=== PATIENT | female | born 1975 | race African-American/Black ===

== ENCOUNTER 2016-12-02 13:53 | Emergency (ER) | payer MEDICAID ==
[~2016-12-02] VITALS: Ht 160 cm; Wt 55.0 kg
[2016-12-02 14:12] VITALS: BP 155/100
== END 2016-12-02 21:08 | disposition left against medical advice (07) ==
LOC: ER 21:03
DX: R10.10 Upper abdominal pain, unspecified (principal); R11.10 Vomiting, unspecified; Z53.21 Procedure and treatment not carried out due to patient leaving prior to being seen by health care provider

== ENCOUNTER 2017-01-04 03:09 | Emergency (ER) | payer MEDICAID ==
[~2017-01-04] VITALS: Ht 157.5 cm; Wt 59.0 kg
[2017-01-04] MEDS ORDERED: ONDANSETRON HCL 4MG/2ML VIAL IV STA (03:29)
[2017-01-04] MEDS ORDERED: MORPHINE SULFATE 4 MG/ML CPJ (NOT FOR IM USE) IV STA (03:29)
[2017-01-04] MEDS ORDERED: SODIUM CHLORIDE 0.9% 1,000 ML IV ONE (03:29)
[2017-01-04 03:52] LABS: BASOPHILS % 3.4 % (0.0-2.0); EOSINOPHILS % 3.4 % (0.0-5.0); HEMATOCRIT. 31.2 % (36.0-48.0); HEMOGLOBIN. 10.7 g/dL (12.0-16.0); MEAN CORPUSCULAR VOLUME 107.5 fL (81.0-99.0); MEAN PLATELET VOLUME 6.2 fl (7.4-10.4); MONOCYTES % 5.2 % (2.0-8.0); PLATELET 339 x1000/uL (130-400); RED CELL DISTRIBUTION WIDTH 17.3 % (11.6-14.6)
[2017-01-04 03:54] LABS: INR 1.1; PROTHROMBIN TIME 11.2 sec (9.4-11.6)
[2017-01-04 04:01] LABS: CARBON DIOXIDE 28 mEq/L (21-32); CHLORIDE 112 mEq/L (98-107)
[2017-01-04 04:46] LABS: CLARITY URINE CLOUDY (CLEAR); COLOR URINE DARK YELLOW (YELLOW); GLUCOSE URINE NEGATIVE (NEGATIVE); KETONES URINE TRACE (NEGATIVE); LEUKOCYTE ESTERASE URINE NEGATIVE (NEGATIVE); NITRITE URINE NEGATIVE (NEGATIVE); OCCULT BLOOD URINE 2+ (NEGATIVE); PH URINE 5.5 (4.5-8.0); PROTEIN URINE TRACE (NEGATIVE); SPECIFIC GRAVITY URINE 1.028 (1.005-1.030)
[2017-01-04 04:58] VITALS: BP 130/85
== END 2017-01-04 05:34 | disposition home or self-care (01) ==
LOC: ER 03:09
DX: A08.4 Viral intestinal infection, unspecified (principal); F17.200 Nicotine dependence, unspecified, uncomplicated; F12.10 Cannabis abuse, uncomplicated; I10 Essential (primary) hypertension
CPT/HCPCS: 36415; 80053; 81001; 81025; 83690; 85025; 85610; 96361; 96374; 96375; 99284; J2270; J2405; J7030; Z7610

== ENCOUNTER 2017-01-16 20:38 | Emergency (ER) | payer MEDICAID ==
[~2017-01-16] VITALS: Ht 162.6 cm; Wt 70.0 kg
[2017-01-17] MEDS ORDERED: KETOROLAC 30MG/ML VIAL IV STA (02:22)
[2017-01-17] MEDS ORDERED: MAGNESIUM/ALUMINUM HYDROXIDE/SIMETHICONE 30ML UDC PO STA (02:22)
[2017-01-17] MEDS ORDERED: ONDANSETRON HCL 4MG/2ML VIAL IV STA (02:22)
[2017-01-17 02:48] LABS: CHLORIDE 115 mEq/L (98-107)
[2017-01-17 02:51] LABS: PROTHROMBIN TIME 10.8 sec (9.4-11.6)
[2017-01-17 02:54] LABS: CLARITY URINE CLOUDY (CLEAR); COLOR URINE YELLOW (YELLOW); GLUCOSE URINE NEGATIVE (NEGATIVE); KETONES URINE NEGATIVE (NEGATIVE); LEUKOCYTE ESTERASE URINE NEGATIVE (NEGATIVE); NITRITE URINE NEGATIVE (NEGATIVE); OCCULT BLOOD URINE NEGATIVE (NEGATIVE); PROTEIN URINE NEGATIVE (NEGATIVE); SPECIFIC GRAVITY URINE 1.011 (1.005-1.030); UROBILINOGEN URINE 0.2 E.U./dL (0.2-1.0)
[2017-01-17 02:57] LABS: CARBON DIOXIDE 24 mEq/L (21-32)
[2017-01-17 02:58] LABS: HCG SCREEN NEGATIVE
[2017-01-17 03:00] LABS: BASOPHILS % 1.9 % (0.0-2.0); EOSINOPHILS % 3.5 % (0.0-5.0); HEMATOCRIT. 31.6 % (36.0-48.0); HEMOGLOBIN. 10.7 g/dL (12.0-16.0); LYMPHOCYTES % 61.6 % (20.0-50.0); MEAN CORPUSCULAR HEMOGLOBIN 35.8 pg (28.0-32.0); MEAN CORPUSCULAR VOLUME 105.6 fL (81.0-99.0); MEAN PLATELET VOLUME 6.3 fl (7.4-10.4); MONOCYTES % 5.8 % (2.0-8.0); NEUTROPHILS % 27.2 % (40.0-76.0); PLATELET 264 x1000/uL (130-400); RED CELL DISTRIBUTION WIDTH 17.8 % (11.6-14.6)
[2017-01-17 04:31] VITALS: BP 106/63
[2017-01-17 04:37] LABS: CREATINE KINASE 62 IU/L (26-192); ETHANOL BLOOD 189 mg/dL
[2017-01-17 04:47] LABS: *AMPHETAMINES SCREEN URINE NEGATIVE (NEGATIVE); *BENZODIAZEPINES SCREEN URINE NEGATIVE (NEGATIVE); *COCAINE SCREEN URINE NEGATIVE (NEGATIVE); METHADONE URINE SCREEN NEGATIVE (NEGATIVE); OPIATES URINE SCREEN NEGATIVE (NEGATIVE); PHENCYCLIDINE URINE SCREEN NEGATIVE (NEGATIVE)
[2017-01-17] MEDS ORDERED: SODIUM CHLORIDE 0.9% 1,000 ML IV ONE (05:30)
[2017-01-17 05:32] LABS: *BARBITURATES SCREEN URINE NEGATIVE (NEGATIVE)
[2017-01-17 05:37] LABS: CANNABINOID URINE SCREEN PRESUMTIVE POSITIVE (NEGATIVE)
[2017-01-17] MEDS ORDERED: HYDROCODONE/ACETAMINOPHEN 5/325MG TABLET PO ONE (05:45)
== END 2017-01-17 05:45 | disposition left against medical advice (07) ==
LOC: ER 01-17 00:04
DX: R10.13 Epigastric pain (principal)
CPT/HCPCS: 36415; 80053; 80305; 81001; 82550; 83690; 84703; 85025; 85610; 96374; 96375; 99284; G0482; J1885; J2405; Z7610

== ENCOUNTER 2017-03-15 12:41 | Emergency (ER) | payer MEDICAID ==
[~2017-03-15] VITALS: Ht 162.6 cm; Wt 62.0 kg
[2017-03-15] MEDS ORDERED: HYDROCODONE/ACETAMINOPHEN 5/325MG TABLET PO ONE (13:15)
[2017-03-15] MEDS ORDERED: KETOROLAC 30MG/ML VIAL IM ONE (14:30)
[2017-03-15 15:14] VITALS: BP 139/71
== END 2017-03-15 15:15 | disposition home or self-care (01) ==
LOC: ER 12:52
DX: S92.351A Displaced fracture of fifth metatarsal bone, right foot, initial encounter for closed fracture (principal); F17.200 Nicotine dependence, unspecified, uncomplicated; I10 Essential (primary) hypertension; W50.2XXA Accidental twist by another person, initial encounter; Y93.89 Activity, other specified; Y92.89 Other specified places as the place of occurrence of the external cause; Y99.8 Other external cause status
CPT/HCPCS: 29515; 73610; 73630; 96372; 99284; J1885

== ENCOUNTER 2017-10-01 18:54 | Emergency (ER) | payer MEDICAID ==
[~2017-10-01] VITALS: Ht 162.6 cm; Wt 50.0 kg
[2017-10-01] MEDS ORDERED: SODIUM CHLORIDE 0.9% 1,000 ML IV ONE (19:10)
[2017-10-01] MEDS ORDERED: ONDANSETRON HCL 4MG/2ML VIAL IV ONE (19:15)
[2017-10-01] MEDS ORDERED: MORPHINE SULFATE 4 MG/ML CPJ (NOT FOR IM USE) IV ONE (19:15)
[2017-10-01 19:50] LABS: BASOPHILS % 0.8 % (0.0-2.0); HEMATOCRIT. 28.7 % (36.0-48.0); HEMOGLOBIN. 9.8 g/dL (12.0-16.0); LYMPHOCYTES % 36.3 % (20.0-50.0); MEAN CORPUSCULAR HEMOGLOBIN 37.2 pg (28.0-32.0); MEAN CORPUSCULAR VOLUME 108.6 fL (81.0-99.0); MONOCYTES % 3.9 % (2.0-8.0); PLATELET 576 x1000/uL (130-400); RED BLOOD CELL COUNT 2.65 mill/uL (4.2-5.4); RED CELL DISTRIBUTION WIDTH 18.3 % (11.6-14.6)
[2017-10-01 19:55] LABS: CHLORIDE 113 mEq/L (98-107)
[2017-10-01 19:57] LABS: PARTIAL THROMBOPLASTIN TIME 29.4 sec (23.4-31.0); PROTHROMBIN TIME 10.9 sec (9.4-11.6)
[2017-10-01 20:00] LABS: ETHANOL BLOOD 275 mg/dL
[2017-10-01 20:05] LABS: HCG SCREEN NEGATIVE
[2017-10-01] MEDS ORDERED: IOHEXOL-350 100 ML BOTTLE ONE (21:10)
[2017-10-01 22:02] LABS: CLARITY URINE CLEAR (CLEAR); COLOR URINE YELLOW (YELLOW); KETONES URINE NEGATIVE (NEGATIVE); LEUKOCYTE ESTERASE URINE NEGATIVE (NEGATIVE); NITRITE URINE NEGATIVE (NEGATIVE); OCCULT BLOOD URINE NEGATIVE (NEGATIVE); PH URINE 6.5 (4.5-8.0); PROTEIN URINE NEGATIVE (NEGATIVE); UROBILINOGEN URINE 0.2 E.U./dL (0.2-1.0)
[2017-10-01 22:13] LABS: *BENZODIAZEPINES SCREEN URINE NEGATIVE (NEGATIVE); *COCAINE SCREEN URINE NEGATIVE (NEGATIVE); METHADONE URINE SCREEN NEGATIVE (NEGATIVE)
[2017-10-01 22:14] LABS: *BARBITURATES SCREEN URINE NEGATIVE (NEGATIVE); CANNABINOID URINE SCREEN NEGATIVE (NEGATIVE); PHENCYCLIDINE URINE SCREEN NEGATIVE (NEGATIVE)
[2017-10-01 22:15] LABS: *AMPHETAMINES SCREEN URINE NEGATIVE (NEGATIVE)
[2017-10-01 22:39] LABS: OPIATES URINE SCREEN PRESUMTIVE POSITIVE (NEGATIVE)
[2017-10-01] MEDS ORDERED: KETOROLAC 30MG/ML VIAL IV ONE (22:45)
[2017-10-01 23:12] VITALS: BP 131/90
== END 2017-10-01 23:45 | disposition home or self-care (01) ==
LOC: ER 19:00
DX: S00.83XA Contusion of other part of head, initial encounter (principal); S16.1XXA Strain of muscle, fascia and tendon at neck level, initial encounter; S29.8XXA Other specified injuries of thorax, initial encounter; S39.81XA Other specified injuries of abdomen, initial encounter; M54.89 Other dorsalgia; R03.0 Elevated blood-pressure reading, without diagnosis of hypertension; Y04.2XXA Assault by strike against or bumped into by another person, initial encounter; Y93.89 Activity, other specified; Y92.89 Other specified places as the place of occurrence of the external cause; F10.129 Alcohol abuse with intoxication, unspecified; Y90.8 Blood alcohol level of 240 mg/100 ml or more; N20.0 Calculus of kidney; J43.9 Emphysema, unspecified; K86.1 Other chronic pancreatitis
CPT/HCPCS: 36415; 70450; 70486; 71045; 71260; 72125; 74177; 80053; 80305; 80307; 80329; 81003; 83690; 84484; 84703; 85025; 85610; 85730; 93005; 96374; 96375; 99285; G0482; J1885; J2270; J7030; Q9967

== ENCOUNTER 2018-07-05 20:01 | Emergency (ER) | payer MEDICAID ==
[~2018-07-05] VITALS: Ht 162.6 cm; Wt 52.2 kg
[2018-07-05 20:04] VITALS: BP 106/76
== END 2018-07-05 23:36 | disposition left against medical advice (07) ==
LOC: ER 20:01
DX: Z53.21 Procedure and treatment not carried out due to patient leaving prior to being seen by health care provider (principal)

== ENCOUNTER 2018-11-15 18:34 | Emergency (ER) | payer MEDICAID ==
[~2018-11-15] VITALS: Ht 165.1 cm; Wt 60.0 kg
[2018-11-15] MEDS ORDERED: KETOROLAC 60MG/2ML VIAL IM STA (20:26)
[2018-11-15] MEDS ORDERED: CYCLOBENZAPRINE 10MG TABLET PO ONE (20:30)
[2018-11-15 22:29] VITALS: BP 100/60
[2018-11-15 22:38] LABS: CLARITY URINE TURBID (CLEAR); COLOR URINE DARK YELLOW (YELLOW); KETONES URINE 1+ (NEGATIVE); LEUKOCYTE ESTERASE URINE 1+ (NEGATIVE); NITRITE URINE NEGATIVE (NEGATIVE); OCCULT BLOOD URINE NEGATIVE (NEGATIVE); PROTEIN URINE 3+ (NEGATIVE); SPECIFIC GRAVITY URINE 1.019 (1.005-1.030)
== END 2018-11-15 22:30 | disposition home or self-care (01) ==
LOC: ER 18:34
DX: M54.41 Lumbago with sciatica, right side (principal); R30.0 Dysuria; I10 Essential (primary) hypertension; F12.10 Cannabis abuse, uncomplicated; F10.21 Alcohol dependence, in remission; Z87.19 Personal history of other diseases of the digestive system
CPT/HCPCS: 81003; 81025; 96372; 99283; J1885

== ENCOUNTER 2019-07-19 22:28 | Emergency (ER) | payer MEDICAID ==
[~2019-07-19] VITALS: Ht 154.9 cm; Wt 59.0 kg
[2019-07-19] MEDS ORDERED: ONDANSETRON 4MG ODT PO STA (23:40)
[2019-07-19] MEDS ORDERED: VISCOUS LIDOCAINE 2% 15 ML UDC PO STA (23:40)
[2019-07-19] MEDS ORDERED: MAGNESIUM/ALUMINUM HYDROXIDE/SIMETHICONE 30ML UDC PO STA (23:40)
[2019-07-19] MEDS ORDERED: FAMOTIDINE 20MG TABLET PO ONE (23:45)
[2019-07-20 00:03] LABS: HEMATOCRIT. 34.1 % (36.0-48.0); HEMOGLOBIN. 11.6 g/dL (12.0-16.0); MEAN CORPUSCULAR HEMOGLOBIN 36.9 pg (28.0-32.0); MEAN CORPUSCULAR VOLUME 108.1 fL (81.0-99.0); MEAN PLATELET VOLUME 6.5 fl (7.4-10.4); PLATELET 238 x1000/uL (130-400); RED BLOOD CELL COUNT 3.15 mill/uL (4.2-5.4)
[2019-07-20 00:07] LABS: CHLORIDE 116 mEq/L (98-107)
[2019-07-20 00:16] LABS: CREATINE KINASE 156 IU/L (26-192); HCG SCREEN NEGATIVE
[2019-07-20 00:20] LABS: ETHANOL BLOOD 333 mg/dL
[2019-07-20 01:10] LABS: PLATELET ESTIMATE NORMAL
[2019-07-20] MEDS ORDERED: VISCOUS LIDOCAINE 2% 15 ML UDC PO ONE ×2 (08:15→15:15)
[2019-07-20] MEDS ORDERED: MAGNESIUM/ALUMINUM HYDROXIDE/SIMETHICONE 30ML UDC PO ONE ×2 (08:15→15:15)
[2019-07-20] MEDS ORDERED: ACETAMINOPHEN 325MG TABLET PO ONE (10:30)
[2019-07-20 10:36] LABS: CLARITY URINE CLEAR (CLEAR); COLOR URINE YELLOW (YELLOW); KETONES URINE NEGATIVE (NEGATIVE); LEUKOCYTE ESTERASE URINE NEGATIVE (NEGATIVE); NITRITE URINE NEGATIVE (NEGATIVE); OCCULT BLOOD URINE NEGATIVE (NEGATIVE); PH URINE 8.5 (4.5-8.0); PROTEIN URINE NEGATIVE (NEGATIVE); SPECIFIC GRAVITY URINE 1.019 (1.005-1.030)
[2019-07-20 10:56] LABS: *AMPHETAMINES SCREEN URINE NEGATIVE (NEGATIVE); *BARBITURATES SCREEN URINE NEGATIVE (NEGATIVE); *BENZODIAZEPINES SCREEN URINE NEGATIVE (NEGATIVE); *COCAINE SCREEN URINE NEGATIVE (NEGATIVE)
[2019-07-20 10:57] LABS: CANNABINOID URINE SCREEN NEGATIVE (NEGATIVE); METHADONE URINE SCREEN NEGATIVE (NEGATIVE); PHENCYCLIDINE URINE SCREEN NEGATIVE (NEGATIVE)
[2019-07-20 20:08] VITALS: BP 155/96
[2019-07-20] MEDS ORDERED: ACETAMINOPHEN 325MG TABLET PO STA (20:23)
[2019-07-20] MEDS ORDERED: FAMOTIDINE 20MG TABLET PO ONE (20:30)
[2019-07-23 09:03] LABS: OPIATES URINE SCREEN NEGATIVE (NEGATIVE)
== END 2019-07-20 21:45 ==
LOC: ER 22:28
DX: R10.9 Unspecified abdominal pain (principal); T51.91XA Toxic effect of unspecified alcohol, accidental (unintentional), initial encounter; R45.851 Suicidal ideations; J45.909 Unspecified asthma, uncomplicated; I10 Essential (primary) hypertension; F12.10 Cannabis abuse, uncomplicated; Z98.890 Other specified postprocedural states
CPT/HCPCS: 36415; 80053; 80305; 80307; 80320; 80329; 81003; 82550; 83690; 84443; 84703; 85025; 93005; 99285; Q0162; G0480

== ENCOUNTER 2020-11-02 13:54 | Emergency (ER) | payer MEDICAID ==
[~2020-11-02] VITALS: Ht 165.1 cm; Wt 70.0 kg
[2020-11-02] MEDS ORDERED: HYDROCODONE/ACETAMINOPHEN 5/325MG TABLET PO ONE (14:45)
[2020-11-02] MEDS ORDERED: LORAZEPAM 1MG TABLET PO ONE (14:45)
[2020-11-02 16:00] VITALS: BP 129/89
== END 2020-11-02 16:42 | disposition home health service (06) ==
LOC: ER 13:54
DX: S09.8XXA Other specified injuries of head, initial encounter (principal); M54.2 Cervicalgia; M54.9 Dorsalgia, unspecified; R55 Syncope and collapse; T71.193A Asphyxiation due to mechanical threat to breathing due to other causes, assault, initial encounter; Y04.2XXA Assault by strike against or bumped into by another person, initial encounter; Y07.11 Biological father, perpetrator of maltreatment and neglect; Y93.89 Activity, other specified; Y92.89 Other specified places as the place of occurrence of the external cause
CPT/HCPCS: 99285